=== PATIENT | female | born 2000 | race Native Hawaiian/Other Pacific Islander ===

== ENCOUNTER 2021-02-06 15:32 | Emergency (ER) | payer OTHER ==
[~2021-02-06] VITALS: Ht 157.5 cm; Wt 93.4 kg
[~2021-02-06 15:32] MED LIST: KETO15TC TP
[2021-02-06] MEDS ORDERED: BIRTH CONTROL (15:39)
[2021-02-06 16:14] LABS: BASOPHILS ABSOLUTE AUTO 0.02 K/mm3 (0.00-0.23); BASOPHILS PERCENT AUTO 0 % (0-2); EOSINOPHILS ABSOLUTE AUTO 0.06 K/mm3 (0.00-0.68); EOSINOPHILS PERCENT AUTO 1 % (0-6); Hematocrit 42.2 % (33.0-51.0); IMMATURE GRAN ABSOLUTE AUTO 0.02 K/mm3 (0.00-0.10); IMMATURE GRAN PERCENT AUTO 0 % (0-1); LYMPHOCYTES ABSOLUTE AUTO 2.19 K/mm3 (0.84-5.20); LYMPHOCYTES PERCENT AUTO 23 % (21-46); MONOCYTES ABSOLUTE AUTO 0.46 K/mm3 (0.16-1.47); MONOCYTES PERCENT AUTO 5 % (4-13); Mean Corpuscular HGB 25.9 pg (26.0-34.0); Mean Corpuscular HGB Conc 30.8 g/dL (31.5-36.5); Mean Corpuscular Volume 84 fL (80-100); Mean Platelet Volume 11.3 fL (9.1-12.4); NEUTROPHILS ABSOLUTE AUTO 6.71 K/mm3 (1.96-9.15); NEUTROPHILS PERCENT AUTO 71 % (41-73); Platelet Count 216 K/mm3 (150-400); RDW Coefficient Variation 13.7 % (11.7-14.2); RDW Standard Deviation 42.2 fL (35.1-46.3); Red Blood Cell Count 5.02 M/mm3 (3.80-5.20); White Blood Cell Count 9.46 K/mm3 (4.00-11.30)
[2021-02-06 16:32] LABS: Alanine Aminotransfer (ALT/SGP 38 U/L (12-78); Albumin, Blood 4.1 g/dL (3.4-5.0); Albumin/Globulin Ratio 1.1 (0.8-1.8); Alk Phos 100 U/L (45-116); Anion Gap 4 mmol/L (6-16); Aspartate Aminotrans (AST/SGOT 18 U/L (12-37); Bilirubin, Total 0.3 mg/dL (0.1-1.0); Blood Urea Nitrogen 10 mg/dL (8-21); CO2, Blood 26 mmol/L (21-32); Chloride, Blood 111 mmol/L (98-108); Creatinine, Blood 0.72 mg/dL (0.40-1.00); Globulin, Blood 3.8 g/dL (2.2-4.0); Glomerular Filtration Rate >60 (60-); Glucose, Blood 94 mg/dL (70-99); Potassium, Blood 3.8 mmol/L (3.5-5.5); Sodium, Blood 141 mmol/L (136-145); Total Protein, Blood 7.9 g/dL (6.4-8.2)
[2021-02-07 06:09] LABS: HIV SCREEN 4TH GENERATION WRFX Non Reactive (Non Reactive)
[2021-02-07 07:09] LABS: HCV ANTIBODY <0.1 (0.0-0.9)
== END 2021-02-06 17:30 | disposition home or self-care (01) ==
LOC: ER 15:32
PROVIDERS: Physician Assistant
DX: S61.236A Puncture wound without foreign body of right little finger without damage to nail, initial encounter (principal); Z77.21 Contact with and (suspected) exposure to potentially hazardous body fluids; Z79.899 Other long term (current) drug therapy; W46.1XXA Contact with contaminated hypodermic needle, initial encounter
CPT/HCPCS: 80053; 84703; 85025; 86317; 86803; 87389; 99283

== ENCOUNTER 2021-02-08 08:15 | Emergency (ER) | payer OTHER ==
[~2021-02-08] VITALS: Ht 157.5 cm; Wt 93.4 kg
[~2021-02-08 08:15] MED LIST changes: +BIRTH CONTROL
== END 2021-02-08 10:39 | disposition home or self-care (01) ==
LOC: ER 08:15
DX: Z77.21 Contact with and (suspected) exposure to potentially hazardous body fluids (principal); Z76.89 Persons encountering health services in other specified circumstances; W46.1XXA Contact with contaminated hypodermic needle, initial encounter; Z79.3 Long term (current) use of hormonal contraceptives; Z91.09 Other allergy status, other than to drugs and biological substances; Z91.011 Allergy to milk products
CPT/HCPCS: 99281; A9270

== ENCOUNTER 2023-11-30 02:55 | Emergency (ER) | payer OTHER ==
[~2023-11-30] VITALS: Ht 157.5 cm; Wt 83.9 kg
[2023-11-30] MEDS ORDERED: ALDACTONE100 MG PO (04:11)
[2023-11-30] MEDS ORDERED: ENSKYCE 28 TAB1 EACH PO (04:11)
[2023-11-30] MEDS ORDERED: AMPDEX5 (04:11)
[2023-11-30] MEDS ORDERED: ESCI10 PO (04:11)
[2023-11-30 07:39] VITALS: BP 116/76
== END 2023-11-30 07:55 | disposition home or self-care (01) ==
LOC: ER 02:55
DX: K59.00 Constipation, unspecified (principal); F90.9 Attention-deficit hyperactivity disorder, unspecified type; Z79.899 Other long term (current) drug therapy; Z88.8 Allergy status to other drugs, medicaments and biological substances; Z91.048 Other nonmedicinal substance allergy status
CPT/HCPCS: 74019; 81025; 99283-25

== ENCOUNTER → 2024-08-26 | Outpatient (CLI) | payer OTHER ==
[~2024-08-26] MED LIST changes: +ALDACTONE100 MG PO; +AMPDEX5; +ENSKYCE 28 TAB1 EACH PO; +ESCI10 PO
== END ==
LOC: LAB 08:30 → LAB SHORT 08:30
DX: J02.0 Streptococcal pharyngitis (principal)
CPT/HCPCS: 87081

== ENCOUNTER → 2024-09-22 | Outpatient (CLI) | payer OTHER ==
[2024-09-23 10:52] LABS: Campylobacter Sp Not Detected (NOT DETECT)
[2024-09-23 10:53] LABS: Adenovirus F 40/41 Not Detected (NOT DETECT); Astrovirus Not Detected (NOT DETECT); Cryptosporidium Not Detected (NOT DETECT); Cyclospora Cayetanensis Not Detected (NOT DETECT); E. Coli O157 Not Detected (NOT DETECT); Entamoeba Histolytica Not Detected (NOT DETECT); Enteroaggregative E. coli-EAEC Not Detected (NOT DETECT); Enteropathogenic E. coli-EPEC Not Detected (NOT DETECT); Enterotoxigenic E. coli-ETEC Not Detected (NOT DETECT); Giardia Lamblia Not Detected (NOT DETECT); Norovirus GI/GII Not Detected (NOT DETECT); Plesiomonas Shigelloides Not Detected (NOT DETECT); Rotavirus A Not Detected (NOT DETECT); Salmonella Sp Not Detected (NOT DETECT); Sapovirus Not Detected (NOT DETECT); Shiga Toxin-prod E. coli-STEC Not Detected (NOT DETECT); Shigella/Enteroin E. coli-EIEC Not Detected (NOT DETECT); Vibrio Cholerae Not Detected (NOT DETECT); Vibrio Sp Not Detected (NOT DETECT); Yersinia Enterocolitica Not Detected (NOT DETECT)
== END ==
LOC: LAB SHORT 15:29 → LAB 15:29
PROVIDERS: Nurse Practitioner
DX: K52.9 Noninfective gastroenteritis and colitis, unspecified (principal)
CPT/HCPCS: 87324; 87507

== ENCOUNTER → 2024-11-08 | Outpatient (CLI) | payer OTHER ==
[2024-11-09 11:48] LABS: Bacterial Vaginosis PCR Negative (NEGATIVE); Candida Group, PCR NOT DETECTED (NOT DETECT); Candida glabrata-krusei, PCR NOT DETECTED (NOT DETECT)
[2024-11-09 13:22] LABS: Chlamydia Trachomatis Vaginal NOT DETECTED (NOT DETECT); Neisseria Gonorrhoea Vaginal NOT DETECTED (NOT DETECT)
== END ==
LOC: LAB 18:35 → LAB SHORT 18:35
PROVIDERS: Nurse Practitioner
DX: N89.8 Other specified noninflammatory disorders of vagina (principal)
CPT/HCPCS: 81515; 87491; 87591

== ENCOUNTER → 2025-05-21 | Outpatient (CLI) | payer OTHER | LOC: LAB SHORT 09:18 → LAB 09:18 | DX: N30.00 Acute cystitis without hematuria (principal) | CPT/HCPCS: 87086 ==

== ENCOUNTER → 2025-07-10 | Outpatient (CLI) | payer OTHER ==
[2025-07-10 19:52] LABS: BASOPHILS ABSOLUTE AUTO 0.03 K/mm3 (0.00-0.23); BASOPHILS PERCENT AUTO 0 % (0-2); EOSINOPHILS ABSOLUTE AUTO 0.06 K/mm3 (0.00-0.68); EOSINOPHILS PERCENT AUTO 1 % (0-6); Hematocrit 40.5 % (33.0-51.0); Hemoglobin 13.3 g/dL (11.5-16.0); IMMATURE GRAN ABSOLUTE AUTO 0.02 K/mm3 (0.00-0.10); IMMATURE GRAN PERCENT AUTO 0 % (0-1); LYMPHOCYTES ABSOLUTE AUTO 2.23 K/mm3 (0.84-5.20); LYMPHOCYTES PERCENT AUTO 30 % (21-46); MONOCYTES ABSOLUTE AUTO 0.44 K/mm3 (0.16-1.47); MONOCYTES PERCENT AUTO 6 % (4-13); Mean Corpuscular HGB Conc 32.8 g/dL (31.5-36.5); Mean Corpuscular Volume 85 fL (80-100); NEUTROPHILS ABSOLUTE AUTO 4.75 K/mm3 (1.96-9.15); NEUTROPHILS PERCENT AUTO 63 % (41-73); NRBC ABSOLUTE 0.00 K/mm3 (0.00-0.02); NRBC Auto 0.0 /100 WBC (0.0-0.2); Platelet Count 270 K/mm3 (150-400); RDW Coefficient Variation 13.2 % (11.7-14.2); RDW Standard Deviation 40.7 fL (35.1-46.3)
[2025-07-11 01:07] LABS: Alanine Aminotransfer (ALT/SGP 27.0 U/L (12-78); Albumin, Blood 4.2 g/dL (3.4-5.0); Albumin/Globulin Ratio 1.1 (0.8-1.8); Anion Gap 11.0 mmol/L (3-11); Aspartate Aminotrans (AST/SGOT 28.0 U/L (12-37); Bilirubin, Total 0.4 mg/dL (0.1-1.0); Blood Urea Nitrogen 13.0 mg/dL (8-24); CO2, Blood 23.0 mmol/L (21-32); Calcium, Blood 9.1 mg/dL (8.5-10.1); Chloride, Blood 105.0 mmol/L (98-108); Creatinine, Blood 0.63 mg/dL (0.40-1.00); Globulin, Blood 3.9 g/dL (2.2-4.0); Glucose, Blood 88.0 mg/dL (70-99); Potassium, Blood 4.6 mmol/L (3.5-5.5); Sodium, Blood 134.0 mmol/L (136-145); Thyroid Stimulating Hormone 1.92 uIU/mL (0.360-4.800); Total Protein, Blood 8.1 g/dL (6.4-8.2)
== END ==
LOC: LAB 13:30 → LAB SHORT 13:30
PROVIDERS: Nurse Practitioner Family
DX: Z01.89 Encounter for other specified special examinations (principal); R53.81 Other malaise
CPT/HCPCS: 80053; 84443; 85025

== ENCOUNTER → 2025-08-27 | Outpatient (CLI) | payer OTHER ==
[2025-08-27 14:27] LABS: Bacterial Vaginosis PCR Negative (NEGATIVE); Candida Group, PCR NOT DETECTED (NOT DETECT); Candida glabrata-krusei, PCR NOT DETECTED (NOT DETECT)
== END ==
LOC: LAB 10:34 → LAB SHORT 10:34
PROVIDERS: Obstetrics & Gynecology
DX: Z01.419 Encounter for gynecological examination (general) (routine) without abnormal findings (principal); N89.8 Other specified noninflammatory disorders of vagina
CPT/HCPCS: 81515; G0145